=== PATIENT | female | born 1985 | race Native Hawaiian/Other Pacific Islander ===

== ENCOUNTER 2016-10-13 11:16 | Day surgery (SDC) | payer MEDICAID ==
[2016-10-13] MEDS ORDERED: SURGIFLO MATRIX KIT WITH THROMBIN TP ONE (12:11)
[2016-10-13] MEDS ORDERED: SILVER NITRATE APPLICATOR 1 APPL TP ONE (12:12)
[2016-10-13] MEDS ORDERED: METHYLENE BLUE 0.5% 50 MG/10 ML AMP ONE (12:12)
[2016-10-13] MEDS ORDERED: BUPIVACAINE 0.5% 30 ML SDV ONE (12:12)
[2016-10-13] MEDS ORDERED: BUPIVACAINE 0.25% 30 ML SDV ONE (12:14)
[2016-10-13] MEDS ORDERED: MIDAZOLAM 2 MG/2 ML VIAL ONE ×2 (12:25→12:26)
[2016-10-13] MEDS ORDERED: PROPOFOL/EMULSION 500 MG/50 ML BOTTLE IV ONE (12:29)
[2016-10-13] MEDS ORDERED: PROPOFOL 200 MG/20 ML VIAL ONE (12:29)
[2016-10-13] MEDS ORDERED: fentaNYL 100 MCG/2 ML INJ ONE ×2 (12:29→13:10)
[2016-10-13] MEDS ORDERED: ONDANSETRON 4 MG/2 ML VIAL ONE (12:34)
[2016-10-13] MEDS ORDERED: DEXAMETHASONE 4 MG/ML VIAL ONE (12:34)
[2016-10-13] MEDS ORDERED: SCOPOLAMINE HYDROBROMIDE 1.5 MG PATCH TD ONE (12:45)
[2016-10-13] MEDS ORDERED: SUGAMMADEX SODIUM 200 MG/2 ML VIAL IVP ONE (13:22)
[2016-10-13] MEDS ORDERED: KETOROLAC 30 MG/1 ML SDV ONE (13:26)
--- NOTE | 2016-10-13 14:27 | GOP ---
[f rep st] OPERATIVE REPORT DATE OF OPERATION: 10/13/2016 SURGEON: Gaby Andrade MD SKULL SPLITTER: Karime Anderson MD. ANESTHESIA: General with endotracheal tube. ANESTHESIOLOGIST: Dr. Alberto. PREOPERATIVE DIAGNOSIS: Undesired fertility. POSTOPERATIVE DIAGNOSIS: Undesired fertility. PROCEDURE PERFORMED: Laparoscopic bilateral salpingectomy. FINDINGS: Normal intraabdominal cavity, normal liver and gallbladder, normal bilateral tubes and ovaries. Both tubes completely removed. SPECIMENS: Bilateral fallopian tubes. ESTIMATED BLOOD LOSS: 20 mL. INDICATIONS: Patient is a 30-year-old, G 6, P5-1-0-6 with a history of 6 live- born infants by vaginal delivery. Her history is complicated by chronic hypertension, resulting in preeclampsia in her last few pregnancies, including severe superimposed preeclampsia in her most recent resulting in a delivery at 33 weeks. She desires at this time to proceed with definitive surgery for female sterilization as she is certain that she does not want other children and other contraceptive methods have not worked well for her in the past. We discussed all the risks and benefits, and alternatives to the procedure, and she desires to proceed. DESCRIPTION OF PROCEDURE: Patient was brought to the operating room, and a time -out was done with all parties present and in agreement with planned procedure and patient. General anesthetic with ET tube was obtained. She was prepped and draped in a normal sterile fashion in dorsal lithotomy with Paulie stirrups and arms were tucked. A Rubio catheter was placed. An acorn uterine manipulator was placed. 5 cc of 0.25% Marcaine was injected into the umbilicus and a 5 mm incision was made. The skin was tented up. 3 attempts were made with the Veress needle but entry into the abdominal cavity was not successful and the instrument remained preperitoneal. We then were successfully able to enter under direct visualization using the 5 mm visiport and gained entry into the abdomen. The abdomen was then insufflated to 15 mmHg. No bowel or vascular injuries were noted after entry. The patient was placed in Trendelenburg. Two lower abdominal ports were inserted after injection of Marcaine, and these were placed under direct visualization. Attention was then turned to the bilateral fallopian tubes. The right tube was grasped at the fimbria, and the underlying mesosalpinx was serially coagulated and cut using the PK gyrus, and then at the level of the uterus the tube was crossclamped, sealed and transected. The specimen was removed intact. The same was completed on the left. Hemostasis was noted at this time. All instruments were removed at this time. Gas was removed from the abdomen. The incisions were closed with 4-0 Monocryl and covered with Dermabond. All instruments were removed from the vagina. The patient tolerated the procedure well. Counts were correct x2. She was transferred to the recovery room in good condition. FLUIDS: 600 mL. URINE OUTPUT: 50 mL via Rubio. COMPLICATIONS: None. /[id number]/MODL MTDD
== END 2016-10-13 15:35 | disposition home or self-care (01) ==
LOC: FSGY 11:16
PROVIDERS: ATTEND Obstetrics & Gynecology
PROC: 0UT74ZZ Resection of Bilateral Fallopian Tubes, Percutaneous Endoscopic Approach (ICD-10-PCS; principal; 2016-10-13 12:30)
DX: Z30.2 Encounter for sterilization (principal); I10 Essential (primary) hypertension; Z86.73 Personal history of transient ischemic attack (TIA), and cerebral infarction without residual deficits
CPT/HCPCS: J1100; J1885; J2250; J2405; J2704; J3010; Q9968